=== PATIENT | male | born 1985 | race Hispanic/Latino ===

== ENCOUNTER 2024-03-16 13:32 | Emergency (ER) | payer OTHER ==
[~2024-03-16] VITALS: Ht 167.6 cm; Wt 77.1 kg
[2024-03-16 14:00] VITALS: TEMP 98.6
[2024-03-16] MEDS: ONDANSETRON HCL INJ 2MG/ML 2ML 2 MG/ML VIAL IV STA (14:34)
[2024-03-16] MEDS: KETOROLAC TROMETHAMINE 30 MG/ML VIAL IV STA (14:35)
[2024-03-16 14:53] LABS: BASOPHILS # (AUTO) 0.1 (0.0-0.1); BASOPHILS % 0.4 % (0.0-1.0); EOSINOPHILS # (AUTO) 0.1 (0.0-0.4); EOSINOPHILS % 0.5 % (0.0-6.0); HEMATOCRIT 43.9 % (38.2-49.6); LYMPHOCYTES # (AUTO) 1.3 (1.0-3.2); LYMPHOCYTES % 9.8 % (18.0-39.1); MEAN CORPUSCULAR HEMOGLOBIN 29.1 pg (28-32); MEAN CORPUSCULAR HGB CONC 34.2 g/dL (31-35); MEAN CORPUSCULAR VOLUME 85.2 fL (81-99); MONOCYTES # (AUTO) 0.4 (0.2-0.8); MONOCYTES % 3.2 % (4.4-11.3); NEUTROPHILS # (AUTO) 10.9 (2.1-6.9); NEUTROPHILS % 85.7 % (38.7-80.0); PLATELET COUNT 222 x10e3/uL (140-360); RED BLOOD COUNT 5.15 x10e6/uL (4.3-5.7); RED CELL DISTRIBUTION WIDTH 12.5 % (11.7-14.4); WHITE BLOOD COUNT 12.72 x10e3/uL (4.8-10.8)
[2024-03-16 15:18] LABS: ALBUMIN 4.5 g/dL (3.5-5.0); ALBUMIN/GLOBULIN RATIO 1.5 (0.8-2.0); ANION GAP 16.9 mmol/L (8-16); BILIRUBIN,TOTAL 0.8 mg/dL (0.2-1.2); CALCIUM 9.3 mg/dL (8.4-10.2); CREATININE, SERUM 1.42 mg/dL (0.72-1.25); POTASSIUM 3.9 mmol/L (3.5-5.1); TOTAL PROTEIN 7.6 g/dL (6.5-8.1)
[2024-03-16 15:43] LABS: BILIRUBIN,URINE SMALL (NEGATIVE); CLARITY,URINE CLEAR (CLEAR); COLOR,URINE YELLOW (YELLOW); GLUCOSE, URINE NEGATIVE (NEGATIVE); KETONES,URINE TRACE (NEGATIVE); LEUKOCYTE ESTERASE ,URINE NEGATIVE (NEGATIVE); NITRITE,URINE NEGATIVE (NEGATIVE); PH,URINE 7.5 (5 - 7); PROTEIN,URINE DIPSTICK TRACE (NEGATIVE); URINE UROBILINOGEN 1 mg/dL (0.2 - 1)
[2024-03-16 15:47] LABS: RBC,URINE 0-5 /HPF (0-5); WBC,URINE (MAN) 0-5 /HPF (0-5)
[2024-03-16 15:48] LABS: BACTERIA,URINE MODERATE /HPF; CALCIUM OXALATE CRYSTALS,UR MANY (FEW); EPITHELIAL CELLS,URINE RARE /LPF; MUCUS,URINE MANY (RARE)
[2024-03-16] MEDS: SODIUM CHLORIDE 0.9% 1000ML 1,000 ML IV ONE (16:01)
[2024-03-16] MEDS: TRAMADOL HCL 50 MG TAB PO ONE (16:37)
[2024-03-16 16:39] VITALS: PULSE 74; RESP 18; O2SAT 100
[2024-03-16] MEDS ORDERED: LEVOFLOXACIN750 MG PO (17:17)
[2024-03-16] MEDS ORDERED: ONDANSETRON ODT4 MG PO (17:17)
[2024-03-16] MEDS ORDERED: FLOMAX0.4 MG PO (17:17)
== END 2024-03-16 17:00 | disposition home or self-care (01) ==
LOC: ER 14:42
DX: M54.50 Low back pain, unspecified (principal); N13.30 Unspecified hydronephrosis; R11.2 Nausea with vomiting, unspecified
CPT/HCPCS: 36415; 74176; 80053; 81001; 83690; 85025; 99284; J1885; J2405; J7030